=== PATIENT | female | born 1945 | race Caucasian/White ===

== ENCOUNTER 2020-12-11 07:41 | Day surgery (SDC) | payer MEDICARE ==
[~2020-12-11 07:41] MED LIST: Midazolam 1 MG/ML 2 ML SDV ONE; Propofol 200 MG/20 ML SDV ONE; fentaNYL 100 MCG/2 ML SDV ONE
[2020-12-11] MEDS ORDERED: Dextrose 5%-Lactated Ringers 1,000 ML IV SCH (08:15)
[2020-12-11 10:50] VITALS: BP 138/85; PULSE 64
[2020-12-11] MEDS ORDERED: Propofol 200 MG/20 ML SDV ONE (10:52)
--- NOTE | 2020-12-18 10:48 | OR ---
DATE OF PROCEDURE: 12/11/2020 SURGEON: Sridhar Davies MD PREOPERATIVE DIAGNOSIS: History of colon carcinoma and polyps. POSTOPERATIVE DIAGNOSES: 1. Flexible colonoscopy showing no polyps or other signs of neoplasia. 2. Minimal uncomplicated left colonic diverticulosis. OPERATIVE PROCEDURE: Flexible colonoscopy. ANESTHESIA: IV sedation. INDICATION FOR PROCEDURE: A 75-year-old presenting with a strong family history of colon neoplasia. Her father had a colon carcinoma and siblings have had colon polyps. She is undergoing colonoscopy with biopsies and polypectomy as indicated. Potential risks including bleeding and perforation were discussed, and the patient wishes to proceed. DETAILS OF PROCEDURE: The patient was taken to the operating room and placed in left lateral decubitus position. IV sedation was administered, after which the initial digital rectal exam was performed which was unremarkable. Colonoscope was then passed into the rectum with retroflexion revealing uncomplicated hemorrhoidal columns. Scope was eventually passed to the level of the cecum. The prep was quite good with only a small amount of liquid stool present. To that level, the patient had some scattered uncomplicated left colonic diverticulosis. Otherwise, there were no areas of colitis, and no polyps or other signs of neoplasia were seen. The scope was then withdrawn, the above findings reconfirmed, and the procedure then concluded. Given the patient's family history of colon neoplasia, she should repeat colonoscopy in 5 years. Sridhar Davies MD /[id number]
== END 2020-12-11 10:28 | disposition home or self-care (01) ==
LOC: JP.SDS 07:41
PROVIDERS: ATTEND Surgery
DX: Z12.11 Encounter for screening for malignant neoplasm of colon (principal); K57.30 Diverticulosis of large intestine without perforation or abscess without bleeding; K64.9 Unspecified hemorrhoids; I10 Essential (primary) hypertension; Z88.8 Allergy status to other drugs, medicaments and biological substances; Z85.038 Personal history of other malignant neoplasm of large intestine; Z86.010 Personal history of colon polyps; Z80.0 Family history of malignant neoplasm of digestive organs
CPT/HCPCS: G0105; J2250; J2704; J3010; J7121